=== PATIENT | female | born 1960 | race Caucasian/White ===

== ENCOUNTER 2018-12-18 10:21 | Inpatient (IN) | payer BC ==
[~2018-12-18] VITALS: Ht 170.2 cm; Wt 89.6 kg
[2018-12-18] MEDS ORDERED: ZOLOFT100 MG PO (10:29)
[2018-12-18] MEDS ORDERED: MACROBID100 MG PO (10:30)
[2018-12-18] MEDS ORDERED: MOBIC7.5 MG PO (10:31)
[2018-12-18] MEDS ORDERED: CYCLOBENZAPRINE10 MG PO (10:31)
[2018-12-18] MEDS ORDERED: ACETAMINOPHEN325 MG PO (10:32)
[2018-12-18] MEDS ORDERED: LISINOPRIL-HCT1 EAC7 PO (10:34)
[2018-12-18 11:00] VITALS: BP 103/62
--- NOTE | 2018-12-18 11:15 | NUR ---
PT ASSISTED TO BATHROOM, ABLE TO AMBULATE WITH MINIMAL ASSISTANCE PER THIS RN. URINE SAMPLE COLLECTED VIA CLEAN CATCH AND SENT TO THE LAB.
[2018-12-18 11:21] LABS: BASOPHILS 0.3 % (0-2); EOSINOPHILS 0.5 % (0-7); HEMATOCRIT 29.2 % (42.0-54.0); HEMOGLOBIN 10.7 g/dL (13.5-17.5); IMMATURE GRANULOCYTES 0.8 % (0-5); LYMPHOCYTES 11.2 % (15-50); MCH 32.6 pg (26.0-34.0); MCHC 36.6 g/dL (31.0-37.0); MEAN PLATELET VOLUME 10.6 fL (7.4-10.4); MONOCYTES 11.8 % (2-11); NEUTROPHILS 75.4 % (40-80); PLATELET COUNT 142 10x3/uL (130-400); RBC 3.28 10x6/uL (4.20-6.10); RDW 13.1 % (11.5-14.5); WBC 11.4 10x3/uL (4.8-10.8)
[2018-12-18 11:23] LABS: ALBUMIN 1.9 g/dL (3.4-5.0); BILIRUBIN - TOTAL 0.55 mg/dL (0.2-1.3); CALCIUM 7.1 mg/dL (8.5-10.1); CARBON DIOXIDE 21.6 mmol/L (21.0-32.0); CREATININE - SERUM 5.3 mg/dL (0.6-1.3); POTASSIUM - SERUM 3.6 mmol/L (3.5-5.1); PROTEIN - SERUM 6.1 g/dL (6.4-8.2)
[2018-12-18 11:36] LABS: APPEARANCE HAZY (CLEAR); BACTERIA MODERATE /hpf (NONE SEEN); BILIRUBIN NEGATIVE (NEGATIVE); COLOR YELLOW (YELLOW); EPITHELIAL CELLS 0-5 /hpf (0-5); GLUCOSE NEGATIVE (NEGATIVE); KETONE NEGATIVE (NEGATIVE); MUCUS <1+ /lpf (NONE SEEN); NITRITE POSITIVE (NEGATIVE); PROTEIN 1+ mg/dL (NEGATIVE); RED CELLS - URINE 0-5 /hpf (0-5); SPECIFIC GRAVITY 1.015 (1.005-1.020); UROBILINOGEN NORMAL (NORMAL)
[2018-12-18 12:00] VITALS: BP 104/62
--- NOTE | 2018-12-18 12:23 | NUR ---
PT GIVEN MEAL TRAY REQUESTED. PT REMAINS ALERT AND ORIENTED, RESPIRATIONS EVEN AND UNLABORED. NO SIGNS OF DISRESS. CALL LIGHT IN REACH. PT AWARE SHE IS BEING ADMITTED TO [facility], AWAITING BED ASSIGNMENT.
[2018-12-18 13:00] VITALS: BP 96/55
--- NOTE | 2018-12-18 14:01 | MORECARE ---
CASE MANAGEMENT DISCHARGE SUMMARY PATIENT: MANJEET RICHARDS UNIT: [id number] ADM DATE: 12/18/18 AGE: 58 : 56 SEX: F ROOM/BED: D.7273 AUTHOR: ILENE MIJARES PHYSICIAN: REFERRING PHYSICIAN: PAIGE MARTELL MD DATE OF SERVICE: 12/18/18 Discharge Plan Patient Name: MANJEET RICHARDS [facility] [facility] 1960 Planned Disposition: Home Anticipated Discharge Date: Discharge Date: Expected LOS: Initial Reviewer: [email or web address] Initial Review Date: 12/18/2018 Generated: 12/18/18 3:00 pm DCPIA - Discharge Planning Initial Assessment Updated by [email or web address]: Mulu Matos on 12/18/18 1:59 pm * Is the patient Alert and Oriented? Yes * How many steps to enter\exit or inside your home? 15 * PCP Dr. Whitney Ocampoboro * Pharmacy [facility] * Preadmission Environment Home with Family * ADLs Independent * Equipment None * List name and contact numbers for known caregivers / representatives who currently or will assist patient after discharge: Jesús Antony [facility] - [phone] * Verbal permission to speak to the caregivers and representatives has been obtained from the patient. Yes * Community resources currently utilized None * Additional services required to return to the preadmission environment? No * Can the patient safely return to the preadmission environment? Yes * Has this patient been hospitalized within the prior 30 days at any hospital? No Patient Name: MANJEET RICHARDS Page [phone] at 1401 All edits/amendments must be made on the electronic document DICTATION DATE: 12/18/18 1400 CSR: THEO 12/18/18 1400 RPT#: [id number] DC DATE: STATUS: ADM IN [facility] [address] [place] [address] END OF REPORT
--- NOTE | 2018-12-18 14:09 | MORECARE ---
CASE MANAGEMENT DISCHARGE SUMMARY PATIENT: MANJEET RICHARDS UNIT: [id number] ADM DATE: 12/18/18 AGE: 58 : 56 SEX: F ROOM/BED: D.9610 AUTHOR: MARYANADOC PHYSICIAN: REFERRING PHYSICIAN: PAIGE MARTELL MD DATE OF SERVICE: 12/18/18 Discharge Plan Patient Name: MAJNEET RICHARDS Facility: [facility]:[place] : 1960 Planned Disposition: Home Anticipated Discharge Date: Discharge Date: Expected LOS: Initial Reviewer: [email or web address] Initial Review Date: 12/18/2018 Generated: 12/18/18 3:09 pm DCP- Discharge Planning Updated by [email or web address]: Mulu Matos on 12/18/18 1:[address] Patient Name: MANJEET RICHARDS Admission Status: ER Accout number: [id number] Admission Date: 12-18-2018 : 1960 Admission Diagnosis: Attending: JAYSHREE, Current LOS: 1 Anticipated DC Date: Planned Disposition: Home Primary Insurance: [employer] OUT OF STATE Discharge Planning Comments: CM met with patient and her son Jesús Partida to complete initial dc planning assessment. CM educated patient on the CM role and verbal consent given by patient to complete assessment. CM verified patient's address, phone number, and emergency contact phone numbers. Patient lives at home and her 85 yo mother lives with her and she is her mothers primary caregiver. At discharge patient plans to return home independently and feels this is a safe discharge. CM discussed availability of home health, rehab services, and medical equipment. Patient denied known discharge needs at this time. Patient reports her son or other family member will transport her home at time of discharge. CM will continue to follow and will assist as needed with dc plans/needs. Die Cast Technician: Mulu Matos RN, [facility] DCPIA - Discharge Planning Initial Assessment Updated by [email or web address]: Mulu Matos on 12/18/18 1:59 pm * Is the patient Alert and Oriented? Yes * How many steps to enter\exit or inside your home? 15 * PCP Dr. Whitney Wills * [facility] * Preadmission Environment Home with Family * ADLs Independent * Equipment None * List name and contact numbers for known caregivers / representatives who currently or will assist patient after discharge: Jesús og - [phone] * Verbal permission to speak to the caregivers and representatives has been obtained from the patient. Yes * Community resources currently utilized None * Additional services required to return to the preadmission environment? No * Can the patient safely return to the preadmission environment? Yes * Has this patient been hospitalized within the prior 30 days at any hospital? No Last DP export: 12/18/18 1:00 p Patient Name: MANJEET RICHARDS Page [phone] at 1409 All edits/amendments must be made on the electronic document DICTATION DATE: 12/18/181408 CSW: THEO 12/18/181408 RPT#: [id number] DC DATE: STATUS: ADM IN [facility] [address] [place] [address] END OF REPORT
--- NOTE | 2018-12-18 14:16 | NUR ---
TRANSFER FROM ER BY W/C. DARIUSINTED TO ROOM. CALL LIGHT IN REACH. WILL CONT. PLAN OF CARE.
--- NOTE | 2018-12-18 14:43 | NUR ---
RECIEVED FROM ER VIA WHEELCHAIR. RN FOR ADMIT ASSESSMENT.
[2018-12-18 14:58] VITALS: BP 111/59; BMI 29.3
[2018-12-18 16:47] VITALS: BP 105/61
--- NOTE | 2018-12-18 18:21 | NUR ---
WITHOUT CHANGES OR DISTRESS NOTED AT THIS TIME. DENIES NEEDS.
[2018-12-18 20:00] VITALS: BP 106/60
--- NOTE | 2018-12-18 20:03 | NUR ---
RESUMING PATIENT CARE. PATIENT IS ALERT AND ORIENTED. RESPIRATIONS ARE EVEN AND UNLABORED. NO S/S OF DISTRESS. PATIENT TYLENOL FOR HEADACHE, WHICH PATIENT RECEIVED. CALL LIGHT WITHIN REACH. NEEDS MET. WILL CPOC.
[2018-12-19] VITALS: BP 108/40
[2018-12-19 05:00] VITALS: BP 112/52
--- NOTE | 2018-12-19 07:48 | NUR ---
ASSESSMENT DONE. DENIES NEEDS.
[2018-12-19 08:05] LABS: BASOPHILS 0.2 % (0-2); EOSINOPHILS 0.9 % (0-7); HEMATOCRIT 30.8 % (36.0-48.0); HEMOGLOBIN 11.1 g/dL (12-16); IMMATURE GRANULOCYTES 0.9 % (0-5); LYMPHOCYTES 6.6 % (15-50); MCH 32.2 pg (26.0-34.0); MCV 89.3 fL (80.0-100.0); MEAN PLATELET VOLUME 10.7 fL (7.4-10.4); MONOCYTES 10.1 % (2-11); NEUTROPHILS 81.3 % (40-80); RBC 3.45 10x6/uL (4.00-5.40); RDW 13.3 % (11.5-14.5)
[2018-12-19 08:07] LABS: PLATELET COUNT 172 10x3/uL (130-400); WBC 14.8 10x3/uL (4.8-10.8)
[2018-12-19 08:21] LABS: BILIRUBIN - TOTAL 0.62 mg/dL (0.2-1.3); CALCIUM 7.8 mg/dL (8.5-10.1); CARBON DIOXIDE 17.6 mmol/L (21.0-32.0); CREATININE - SERUM 5.3 mg/dL (0.6-1.3); MAGNESIUM - SERUM 2.3 mg/dL (1.8-2.4); PHOSPHOROUS 5.3 mg/dL (2.5-4.9); POTASSIUM - SERUM 3.6 mmol/L (3.5-5.1); PROTEIN - SERUM 6.3 g/dL (6.4-8.2)
[2018-12-19 09:55] VITALS: BP 113/64
[2018-12-19 12:49] VITALS: BP 121/66
--- NOTE | 2018-12-19 15:02 | NUR ---
I have reviewed this patient and I concur with the Shift Assessment completed by the Licensed Practical Nurse today this shift.
--- NOTE | 2018-12-19 17:16 | NUR ---
WITHOUT CHANGES OR DISTRESS NOTED AT THIS TIME. DENIES NEEDS.
[2018-12-19 17:57] VITALS: BP 114/63
[2018-12-19 20:00] VITALS: BP 98/63
--- NOTE | 2018-12-19 21:28 | NUR ---
INITIAL ROUNDS COMPLETED AT 1910 HRS. PT DENIED ANY DISCOMFORT. ASSESSMENT COMPLETED AT 1945 HRS. VSS. ALERT AND ORIENTED TO PERSON,PLACE AND TIME. CLARK. IV TO LFA WITH BICARB AT 100CC/HR AND NS AT 125CC/HR. IV PATENT. LUNGS DIMINISHED IN BASES BILAT. FLEXERIL 10MG PO GIVEN FOR C/O MID BACK PAIN. PT CURRENTLY RESTING WTIH EYES CLOSED. RESP EVEN AND REGULAR. SR UPX2,CALL LIGHT WITHIN REACH.
--- NOTE | 2018-12-19 21:59 | NUR ---
PT RESTING WITH EYES CLOSED. RESP EVEN AND REGULAR. SR UP X2, CALL LIGHT WITHIN REACH.
[2018-12-20] VITALS: BP 127/68
--- NOTE | 2018-12-20 00:41 | NUR ---
NORCO PO GIVEN FOR C/O BACK PAIN. PT CURRENTLY RESTING WITH EYES CLOSED. RESP EVEN AND REGULAR. SR UP X2, CALL LIGHT WITHIN REACH.
--- NOTE | 2018-12-20 02:49 | NUR ---
PT RESTING WITH EYES CLOSED. RESP EVEN AND REGULAR. SR UP X2,CALL LIGHT WTIHIN REACH.
[2018-12-20 04:00] VITALS: BP 108/57
[2018-12-20 04:25] LABS: BASOPHILS 0.3 % (0-2); EOSINOPHILS 1.5 % (0-7); IMMATURE GRANULOCYTES 1.6 % (0-5); LYMPHOCYTES 12.8 % (15-50); MCH 31.5 pg (26.0-34.0); MCHC 35.7 g/dL (31.0-37.0); MCV 88.3 fL (80.0-100.0); MEAN PLATELET VOLUME 9.8 fL (7.4-10.4); MONOCYTES 7.6 % (2-11); NEUTROPHILS 76.2 % (40-80); PLATELET COUNT 209 10x3/uL (130-400); RBC 3.17 10x6/uL (4.00-5.40); RDW 13.4 % (11.5-14.5); WBC 11.6 10x3/uL (4.8-10.8)
--- NOTE | 2018-12-20 04:25 | NUR ---
PT RESTING WITH EYES CLOSED. RESP EVEN AND REGULAR. SR UP X2, CALL LIGHT WITHIN REACH.
[2018-12-20 04:35] LABS: ALBUMIN 1.8 g/dL (3.4-5.0); BILIRUBIN - TOTAL 0.46 mg/dL (0.2-1.3); CALCIUM 7.9 mg/dL (8.5-10.1); CREATININE - SERUM 4.3 mg/dL (0.6-1.3); MAGNESIUM - SERUM 2.2 mg/dL (1.8-2.4); POTASSIUM - SERUM 3.5 mmol/L (3.5-5.1); PROTEIN - SERUM 5.6 g/dL (6.4-8.2)
[2018-12-20 04:36] LABS: ANION GAP 14.4 mmol/L (8-16); CARBON DIOXIDE 22.1 mmol/L (21.0-32.0)
--- NOTE | 2018-12-20 06:12 | NUR ---
VSS THROUGHOUT NIGHT. PT STATED NORCO HELPED HER PAIN. AM K+ 3.5. KCL 40 MEQ PO GIVEN PER ELECTROLYTE PROTOCOL. NEEDS MET; WILL CONTINUE TO MONITOR.
--- NOTE | 2018-12-20 06:57 | NUR ---
AM ROUNDS- PT IN BED, RESTING COMFORTABLY WITH EYES CLOSED. RESP EVEN AND NONLABORED ON RA. LT FA INFUSING BICARB AT 100 AND NS AT 25. CALL LIGHT IN REACH, BEDSIDE RAILS X2, NAD NOTED, WILL CONTINUE PLAN OF CARE.
--- NOTE | 2018-12-20 08:42 | NUR ---
AM MEDS GIVEN AT THIS TIME. IVPB TIM AVILA, PT IN BED, WATCHING TV, DENIES ANY NEEDS AT THIS TIME. CALL LIGHT IN REACH, NAD NOTED,W ILL CONTINUE PLAN OF CARE.
[2018-12-20 10:08] VITALS: BP 124/65
--- NOTE | 2018-12-20 16:45 | NUR ---
NORCO GIVEN FOR PAIN LEVEL OF 8/10. PT DENIES ANY OTHER NEEDS AT THIS TIME. FAMILY AT BEDSIDE, STRAIGHTENING ROLL OPERATOR AT BEDSIDE GETTING VITAL SIGNS. CALL LIGHT IN REACH, NAD NOTED.
[2018-12-20 18:55] VITALS: BP 158/83
[2018-12-20 20:00] VITALS: BP 130/72
--- NOTE | 2018-12-20 21:35 | NUR ---
INITIAL ROUNDS COMPLETED AT 1910 HRS. PT DENIED ANY DISCOMFORT. ASSESSMENT COMPLETED AT 1945 HRS. VSS. ALERT AND ORIENTED TO PERSON, PLACE AND TIME. CLARK. IV TO LFA WITH NS AT 25CC/HR AND BICARB AT 100CC/HR. IV PATENT. LUNGS DIMINISHED IN BASES BILAT. PT CURRENTLY RESTING WITH EYES CLOSED. RESP EVEN AND REGULAR. SR UP X2, CALL LIGHT WITHIN REACH.
[2018-12-21] VITALS (7 sets, daily range): BP systolic 101–162; BP diastolic 52–79
--- NOTE | 2018-12-21 00:51 | NUR ---
PT RESTING WITH EYES CLOSED. RESP EVEN AND REGULAR. SR UP X2,CALL LIGHT WITHIN REACH.
--- NOTE | 2018-12-21 02:28 | NUR ---
PT AWAKE; DENIES ANY DISCOMFORT. CALL LIGHT WITHIN REACH.
--- NOTE | 2018-12-21 04:27 | NUR ---
PT RESTING WITH EYES CLOSED. RESP EVEN AND REGULAR. SR UP X2, CALL LIGHT WITHIN REACH.
--- NOTE | 2018-12-21 06:39 | NUR ---
VSS THROUGHOUT NIGHT. PT DENIED ANY DISCOMFORT. NEEDS MET; WILL CONTINUE TO MONITOR.
[2018-12-21 06:40] LABS: BASOPHILS 0.4 % (0-2); EOSINOPHILS 1.5 % (0-7); HEMOGLOBIN 9.8 g/dL (12-16); IMMATURE GRANULOCYTES 1.3 % (0-5); LYMPHOCYTES 9.5 % (15-50); MCH 32.3 pg (26.0-34.0); MCHC 36.3 g/dL (31.0-37.0); MCV 89.1 fL (80.0-100.0); MEAN PLATELET VOLUME 9.4 fL (7.4-10.4); MONOCYTES 8.7 % (2-11); NEUTROPHILS 78.6 % (40-80); RBC 3.03 10x6/uL (4.00-5.40); RDW 13.9 % (11.5-14.5); WBC 11.2 10x3/uL (4.8-10.8)
[2018-12-21 06:47] LABS: PLATELET COUNT 254 10x3/uL (130-400)
[2018-12-21 07:19] LABS: ALBUMIN 1.8 g/dL (3.4-5.0); ANION GAP 14.8 mmol/L (8-16); BILIRUBIN - TOTAL 0.33 mg/dL (0.2-1.3); CALCIUM 7.8 mg/dL (8.5-10.1); CARBON DIOXIDE 26.1 mmol/L (21.0-32.0); POTASSIUM - SERUM 3.9 mmol/L (3.5-5.1); PROTEIN - SERUM 5.8 g/dL (6.4-8.2)
[2018-12-21 07:20] LABS: CREATININE - SERUM 3.2 mg/dL (0.6-1.3); MAGNESIUM - SERUM 1.6 mg/dL (1.8-2.4)
--- NOTE | 2018-12-21 07:27 | NUR ---
AM ROUNDS PT RESTING COMFORTABLY IN BED, WITH EYES CLOSED, RESP EVEN AND NONLABORED ON RA. LT FA IV INFUSING NS AT 25 AND SODIUM BICARB AT 100. CALL LIGHT IN REACH, BEDSIDE RAILS X2, NAD NOTED, WILL CONTINUE PLAN OF CARE.
--- NOTE | 2018-12-21 08:58 | NUR ---
AM MEDS GIVEN AT THIS TIME, ALSO GAVE NORCO FOR PAIN LEVEL OF 4/10. PT DENIES ANY NEEDS AT THIS TIME. CALL LIGHT IN REACH, NAD NOTED, WILL CONTINUE PLAN OF CARE.
--- NOTE | 2018-12-21 19:39 | NUR ---
RECEIVED REPORT, WILL ASSUME CARE OF PT, VISITING WITH FAMILY, DENIES ANY NEEDS, BED IS LOW, SRX2, CALL LIGHT IN REACH, WILL CONTINUE PLAN OF CARE
--- NOTE | 2018-12-22 03:58 | NUR ---
I have reviewed this patient and I concur with the Shift Assessment completed by the Licensed Practical Nurse today this shift.
[2018-12-22 04:00] VITALS: BP 161/77
[2018-12-22 05:03] LABS: BASOPHILS 0.3 % (0-2); EOSINOPHILS 1.9 % (0-7); HEMATOCRIT 28.1 % (36.0-48.0); HEMOGLOBIN 9.9 g/dL (12-16); IMMATURE GRANULOCYTES 0.9 % (0-5); LYMPHOCYTES 11.5 % (15-50); MCHC 35.2 g/dL (31.0-37.0); MCV 90.9 fL (80.0-100.0); MEAN PLATELET VOLUME 9.5 fL (7.4-10.4); MONOCYTES 7.2 % (2-11); NEUTROPHILS 78.2 % (40-80); PLATELET COUNT 288 10x3/uL (130-400); RBC 3.09 10x6/uL (4.00-5.40); RDW 13.9 % (11.5-14.5); WBC 11.8 10x3/uL (4.8-10.8)
[2018-12-22 05:27] LABS: ALBUMIN 1.9 g/dL (3.4-5.0); BILIRUBIN - TOTAL 0.39 mg/dL (0.2-1.3); CALCIUM 7.8 mg/dL (8.5-10.1); CARBON DIOXIDE 29.7 mmol/L (21.0-32.0); CREATININE - SERUM 2.7 mg/dL (0.6-1.3); MAGNESIUM - SERUM 1.5 mg/dL (1.8-2.4); POTASSIUM - SERUM 3.7 mmol/L (3.5-5.1); PROTEIN - SERUM 6.1 g/dL (6.4-8.2)
--- NOTE | 2018-12-22 07:00 | NUR ---
PT IN BED EYES CLOSED, RESTING. NO SIGN OF DISTRESS. RESPIRATIONS EVEN AND UNLABORED.
[2018-12-22 08:00] VITALS: BP 142/77
[2018-12-22 12:12] VITALS: BP 143/90
[2018-12-22 13:23] VITALS: Ht 170.2 cm; Wt 89.6 kg
--- NOTE | 2018-12-22 15:08 | NUR ---
I have reviewed this patient and I concur with the Shift Assessment completed by the Licensed Practical Nurse today this shift.
[2018-12-22 16:24] VITALS: BP 167/75
--- NOTE | 2018-12-22 19:35 | NUR ---
ASSESSMENT COMPLETE, PT A&O. RESPERATIONS EVEN ON RA. IV TO LEFT ARM WITH NS INFUSING AT 125 CC/HR. PT CURRENTLY DENIES PAIN OR NEEDS, BED LOW, CL IN REACH.
[2018-12-22 20:00] VITALS: BP 160/76
--- NOTE | 2018-12-23 01:23 | NUR ---
RESTING WITH EYES CLOSED, RESPERAIONS EVEN, NO S/S DISTRESS NOTED.
[2018-12-23 04:00] VITALS: BP 150/68
--- NOTE | 2018-12-23 04:19 | NUR ---
I have reviewed this patient and I concur with the Shift Assessment completed by the Licensed Practical Nurse today this shift.
[2018-12-23 06:33] LABS: BASOPHILS 0.2 % (0-2); EOSINOPHILS 1.3 % (0-7); HEMATOCRIT 28.6 % (36.0-48.0); HEMOGLOBIN 9.9 g/dL (12-16); IMMATURE GRANULOCYTES 0.6 % (0-5); LYMPHOCYTES 8.3 % (15-50); MCH 31.9 pg (26.0-34.0); MCHC 34.6 g/dL (31.0-37.0); MCV 92.3 fL (80.0-100.0); MEAN PLATELET VOLUME 9.3 fL (7.4-10.4); MONOCYTES 7.1 % (2-11); NEUTROPHILS 82.5 % (40-80); PLATELET COUNT 294 10x3/uL (130-400); RDW 13.6 % (11.5-14.5)
[2018-12-23 06:50] LABS: ALBUMIN 2.1 g/dL (3.4-5.0); ANION GAP 13.1 mmol/L (8-16); BILIRUBIN - TOTAL 0.39 mg/dL (0.2-1.3); CALCIUM 7.7 mg/dL (8.5-10.1); CARBON DIOXIDE 27.2 mmol/L (21.0-32.0); CREATININE - SERUM 2.2 mg/dL (0.6-1.3); MAGNESIUM - SERUM 1.6 mg/dL (1.8-2.4); PROTEIN - SERUM 5.6 g/dL (6.4-8.2)
[2018-12-23 06:51] LABS: POTASSIUM - SERUM 4.3 mmol/L (3.5-5.1)
--- NOTE | 2018-12-23 07:00 | NUR ---
ASSESSMENT DONE. NO SIGN OF DISTRESS NOTED. PT C/O HEADACHE. WILL GIVE NORCO ORDERED. RESPIRATIONS EVEN AND UNLABORED.
[2018-12-23 08:19] VITALS: BP 177/89
--- NOTE | 2018-12-23 08:30 | NUR ---
PT AMBULATING. GAIT STEADY.
--- NOTE | 2018-12-23 09:10 | NUR ---
PT C/O N/V BUT REFUSES MEDICINE.
--- NOTE | 2018-12-23 09:41 | NUR ---
I have reviewed this patient and I concur with the Shift Assessment completed by the Licensed Practical Nurse today this shift.
[2018-12-23 12:28] VITALS: BP 180/98
[2018-12-23 16:14] VITALS: BP 164/82
--- NOTE | 2018-12-23 19:32 | NUR ---
ASSESSMENT COMPLETE, PT A&O. RESPERATIONS EVEN ON RA. IV TO LEFT ARM SL, SITE CLEAN AND DRY. PT DENIES PAIN OR NEEDS, BED LOW, CL IN REACH.
[2018-12-23 20:00] VITALS: BP 152/76
--- NOTE | 2018-12-23 21:08 | NUR ---
NORCO 1 TAB GIVEN AT PT REQUEST FOR C/O PAIN TO HEAD. RATES PAIN AT AN 8 ON PAIN SCALE.
--- NOTE | 2018-12-24 02:31 | NUR ---
I have reviewed this patient and I concur with the Shift Assessment completed by the Licensed Practical Nurse today this shift.
--- NOTE | 2018-12-24 03:27 | NUR ---
RESTING WITH EYES CLOSED, RESPERATIONS EVEN, NO S/S DISTRESS NOTED.
[2018-12-24 04:00] VITALS: BP 140/60
[2018-12-24 04:42] LABS: BASOPHILS 0.2 % (0-2); EOSINOPHILS 1.1 % (0-7); HEMATOCRIT 33.2 % (36.0-48.0); HEMOGLOBIN 11.5 g/dL (12-16); IMMATURE GRANULOCYTES 0.6 % (0-5); LYMPHOCYTES 12.5 % (15-50); MCH 31.9 pg (26.0-34.0); MCHC 34.6 g/dL (31.0-37.0); MCV 92.2 fL (80.0-100.0); MEAN PLATELET VOLUME 9.2 fL (7.4-10.4); MONOCYTES 5.8 % (2-11); NEUTROPHILS 79.8 % (40-80); PLATELET COUNT 289 10x3/uL (130-400); RDW 13.4 % (11.5-14.5); WBC 10.7 10x3/uL (4.8-10.8)
--- NOTE | 2018-12-24 07:34 | NUR ---
AM ROUNDS PT RESTING COMFORTABLY IN BED, A/O X4, RESP EVEN AND NONLABORED ON RA. LT FA IV SL. PT STATES THAT SHE IS GOING HOME TODAY. DENIES ANY NEEDS AT THIS TIME. CALL LIGHT IN REACH, NAD NOTED, WILL CONTINUE PLAN OF CARE.
[2018-12-24 08:39] VITALS: BP 140/86
--- NOTE | 2018-12-24 09:07 | NUR ---
AM MEDS GIVEN AT THIS TIME. ALSO GAVE NORCO FOR PAIN LEVEL OF 6/10. PT DENIES ANY NEEDS AT THIS TIME. CALL LIGHT IN REACH, NAD NOTED, WILL CONTINUE TO MONITOR.
[2018-12-24 11:40] VITALS: BP 132/79
[2018-12-24] MEDS ORDERED: LEVAQUIN750 MG PO (14:26)
[2018-12-24] MEDS ORDERED: NORVASC10 MG PO (14:26)
--- NOTE | 2018-12-24 15:46 | NUR ---
PROVIDED VERBAL AND WRITTTEN DISCHARGE TEACHING TO PT WHO VERBALIZED UNDERSTANDING REGARDING TEACHING, D/C LT FA IV WITH CATHETER TIP INTACT.PT LEFT UNIT VIA WHEELCHAIR, WITH ALL BELONGINGS, NAD NOTED.
--- NOTE | 2018-12-25 09:20 | MORECARE ---
CASE MANAGEMENT DISCHARGE SUMMARY PATIENT: MANJEET RICHARDS UNIT: [id number] ADM DATE: 12/18/18 AGE: 58 : 56 SEX: F ROOM/BED: D.3620 AUTHOR: MARYANADOC PHYSICIAN: REFERRING PHYSICIAN: PAIGE MARTELL MD DATE OF SERVICE: 12/25/18 Discharge Plan Patient Name: MANJEET RICHARDS Facility: [facility]:[place] : 1960 Planned Disposition: Home Anticipated Discharge Date: 12/24/18 Discharge Date: 12/24/2018 Expected LOS: 6 Initial Reviewer: [email or web address] Initial Review Date: 12/18/2018 Generated: 12/25/18 10:20 am DCP- Discharge Planning Updated by [email or web address]: Mulu Matos on 12/18/18 1:[address] Patient Name: MANJEET RICHARDS Admission Status: ER Accout number: [id number] Admission Date: 12-18-2018 : 1960 Admission Diagnosis: Attending: JAYSHREE, Current LOS: 1 Anticipated DC Date: Planned Disposition: Home Primary Insurance: [employer] OUT OF STATE Discharge Planning Comments: CM met with patient and her son Jesús Partida to complete initial dc planning assessment. CM educated patient on the CM role and verbal consent given by patient to complete assessment. CM verified patient's address, phone number, and emergency contact phone numbers. Patient lives at home and her 85 yo mother lives with her and she is her mothers primary caregiver. At discharge patient plans to return home independently and feels this is a safe discharge. CM discussed availability of home health, rehab services, and medical equipment. Patient denied known discharge needs at this time. Patient reports her son or other family member will transport her home at time of discharge. CM will continue to follow and will assist as needed with dc plans/needs. Anthropology Lecturer: Mulu Matos RN, [facility] DCPIA - Discharge Planning Initial Assessment Updated by [email or web address]: Mulu Matos on 12/18/18 1:59 pm * Is the patient Alert and Oriented? Yes * How many steps to enter\exit or inside your home? 15 * PCP Dr. Whitney Wills * Pharmacy [facility] [place] * Preadmission Environment Home with Family * ADLs Independent * Equipment None * List name and contact numbers for known caregivers / representatives who currently or will assist patient after discharge: Jesús og - [phone] * Verbal permission to speak to the caregivers and representatives has been obtained from the patient. Yes * Community resources currently utilized None * Additional services required to return to the preadmission environment? No * Can the patient safely return to the preadmission environment? Yes * Has this patient been hospitalized within the prior 30 days at any hospital? No Last DP export: 12/18/18 1:09 p Patient Name: MANJEET RICHARDS Page [id number] at 0920 All edits/amendments must be made on the electronic document DICTATION DATE: 12/25/18918 DIPPER MACHINE OPERATOR: THEO 12/25/18918 RPT#: [id number] DC DATE:12/24/18 STATUS: DIS IN [facility] [address] [place] [address] END OF REPORT
== END 2018-12-24 16:08 | disposition home or self-care (01) | DRG 871 ==
LOC: D.ER 10:21 → EDSEX 10:21 → D.M2 13:06
PROVIDERS: Family Medicine; ADMIT Family Medicine; ATTEND Family Medicine
DX: A41.9 Sepsis, unspecified organism (principal); E43 Unspecified severe protein-calorie malnutrition; N17.9 Acute kidney failure, unspecified; N39.0 Urinary tract infection, site not specified; E87.1 Hypo-osmolality and hyponatremia; F17.213 Nicotine dependence, cigarettes, with withdrawal; D64.9 Anemia, unspecified; E86.0 Dehydration; Z68.29 Body mass index [BMI] 29.0-29.9, adult